=== PATIENT | male | born 1970 | race Caucasian/White ===

== ENCOUNTER 2019-12-09 20:29 | Emergency (ER) | payer MEDICAID ==
[~2019-12-09] VITALS: Ht 172.7 cm; Wt 74.0 kg
[~2019-12-09 20:29] MED LIST: ALBU6.7H8 INH; FOLI-17 PO; LEVO750T26 PO; THIA100T67 PO
[2019-12-09 21:43] LABS: BASOPHILS # (AUTO) 0.05 x10^3/uL (0-0.1); BASOPHILS % (AUTO) 1 % (0-1); EOSINOPHILS # (AUTO) 0.37 x10^3/uL (0-0.4); EOSINOPHILS % (AUTO) 4 % (1-7); LYMPHOCYTES # (AUTO) 2.33 x10^3/uL (1-3.4); LYMPHOCYTES % (AUTO) 23 % (22-44); MD NO; MEAN CORPUSCULAR HEMOGLOBIN 34.2 pg (27.5-34.5); MEAN CORPUSCULAR HGB CONC 33.8 g/dL (33.2-36.2); MEAN CORPUSCULAR VOLUME 101.4 fL (81-97); MEAN PLATELET VOLUME 7.8 fL (7.4-10.4); MONOCYTES # (AUTO) 1.01 x10^3/uL (0.2-0.8); MONOCYTES % (AUTO) 10 % (2-9); NEUTROPHILS # (AUTO) 6.53 x10^3/uL (1.8-6.8); NEUTROPHILS % (AUTO) 64 % (42-75); PLATELET COUNT 303 x10^3/uL (130-400); RED BLOOD COUNT 4.19 x10^6/uL (4.38-5.82); RED CELL DISTRIBUTION WIDTH 13.4 % (9.4-14.8)
[2019-12-09 21:54] LABS: ANION GAP 9 mmol/L (5-15); CALCIUM 8.4 mg/dL (8.5-10.1); CHLORIDE 105 mmol/L (98-107); CREATININE 0.69 mg/dL (0.7-1.3)
--- NOTE | 2019-12-09 22:19 | NUR ---
REPORT TO LACEY ISAAC. AWAITING US TO BE DONE
--- NOTE | 2019-12-09 22:25 | NUR ---
PT SITTING UP IN BED, RESPIRATIONS EVEN AND UNLABORED ON RA. PT C/O PAIN TO LEFT LOWER LEG, WHERE PT HAS EVIDENT REDNESS AND SWELLING. AWAITING ULTRASOUND READ.
--- NOTE | 2019-12-09 22:38 | NUR ---
PT UP FOR RECHECK.
[2019-12-09] MEDS ORDERED: HYDROcodone/APAP 5/325 TABLET PO ONE (23:00)
[2019-12-09] MEDS ORDERED: DIPH,PERTUSS(ACELL),TET VAC/PF 0.5 ML IM-VACC ONE ×2 (23:00→23:11)
[2019-12-09] MEDS ORDERED: LIDOCAINE 1%-EPI 1:100K, 20ML SQ ONE (23:00)
[2019-12-09] MEDS ORDERED: LIDOCAINE 1%-EPI 1:100K, 20ML ONE (23:10)
[2019-12-09] MEDS ORDERED: HYDROcodone/APAP 5/325 TABLET ONE (23:10)
[2019-12-09 23:19] VITALS: BP 140/98
--- NOTE | 2019-12-09 23:19 | NUR ---
PT MEDICATED PER EMAR. I&D SET UP COMPLETED.
--- NOTE | 2019-12-09 23:35 | NUR ---
I&D COMPLETED. PT WITH PACKING, GAUZE PAD AND GAUZE WRAP.
--- NOTE | 2019-12-09 23:42 | NUR ---
REPORT TO PONCHO AYALA.
--- NOTE | 2019-12-09 23:49 | NUR ---
Pt dc'd to self care. Education provided including prescriptions, wound care, follow-up and S/Sx to return. Pt VU. Pt alert and ambulatory at time of d/c. Dressing CDI at time of d/c.
== END 2019-12-09 23:53 | disposition home or self-care (01) ==
LOC: ED 23:44
DX: L03.116 Cellulitis of left lower limb (principal); L02.416 Cutaneous abscess of left lower limb; F17.210 Nicotine dependence, cigarettes, uncomplicated
CPT/HCPCS: 10060; 36415; 80048; 85025; 90471; 90715